=== PATIENT | female | born 1970 | race American Indian/Alaskan Native ===

== ENCOUNTER 2018-12-02 09:30 | Day surgery (SDC) | payer BC ==
[2018-12-01 13:35] VITALS: BMI 28.6
[2018-12-02 10:20] VITALS: O2SAT 100
[2018-12-02] MEDS ORDERED: Midazolam 2 MG/2 ML VIAL ONE (11:32)
[2018-12-02] MEDS ORDERED: Propofol 10 mg/ml Inj (20 ML) ONE (11:32)
[2018-12-02] MEDS: HYDROmorphone 0.5 mg/0.5 ml ISec IVP PRN ×2 (12:20→12:30)
[2018-12-02 14:04] VITALS: RESP 16; TEMP 97.6
[2018-12-02 14:07] VITALS: BP 112/53; PULSE 59
--- NOTE | 2018-12-02 22:12 | OP ---
PROCEDURE DATE: 12/02/2018 PREOPERATIVE DIAGNOSES: Abnormal uterine bleeding, fibroids, pelvic pain. POSTOPERATIVE DIAGNOSES: Abnormal uterine bleeding, fibroids, pelvic pain. PROCEDURE PERFORMED: Hysteroscopic myomectomy, proximal dilation and curettage. SURGEON: Yulissa Bolton MD NURSE RECRUITER: None. ANESTHESIA: General LMA. ESTIMATED BLOOD LOSS: 5 mL. OPERATIVE FINDINGS: Enlarged anteverted uterus, submucosal myoma noted, bilateral ostia visualized. D and C performed. Good hemostasis noted. COMPLICATIONS: None. SPECIMENS: Endocervical curettings, endometrial curettings, submucosal myoma. DESCRIPTION OF PROCEDURE: After informed consent was obtained, the patient was transferred to the operating room, where she was given general anesthesia. Once it was found to be adequate, she was placed on the operating table in dorsal supine position with legs supported using stirrups. The patient was then prepped and draped in the usual sterile fashion. A time-out confirmed correct patient and correct procedure. Bimanual exam was performed. A Zepeda retractor was placed in the anterior and posterior fornix of the vagina. Cervix was adequately visualized. A single-tooth tenaculum was placed on the anterior lip of the cervix. Endocervical curettings were obtained with a Kevorkian curette and sent to Pathology on [facility]. The uterus was then sounded to 8 cm, following which the cervix was sequentially dilated to allow for introduction of the 8 mm hysteroscope under direct visualization using normal saline as distention media, bilateral ostia and the mass was then visualized anteriorly. The MyoSure device was then inserted under direct visualization and was carefully resected. All instruments removed. A gentle curettage was done. The specimen was sent to pathology. All instruments removed. There was good hemostasis noted. At end of the procedure, all needle, sponge, and instrument counts were noted and correct x2. The patient tolerated the procedure well and was transferred to the recovery room in stable condition. Yulissa Bolton MD
== END 2018-12-02 13:54 | disposition home or self-care (01) ==
LOC: C.SDS 09:30
PROVIDERS: ATTEND Obstetrics & Gynecology
DX: N93.9 Abnormal uterine and vaginal bleeding, unspecified (principal); D25.0 Submucous leiomyoma of uterus
CPT/HCPCS: 58561; 88305; J1170; J2250; J2704; J3010